=== PATIENT | female | born 1950 | race Caucasian/White ===

== ENCOUNTER 2017-12-28 19:36 | Emergency (ER) | payer MEDICARE, OTHER ==
--- NOTE | 2017-12-28 20:08 | ER Document Report ---
ED GI/ - General Chief Complaint: blood in stool Stated Complaint: GI BLEED Time Seen by Provider: 12/28/17 19:50 Mode of Arrival: Medic Information source: Patient Notes: Patient is a 67-year-old female who presents with chief complaint of rectal bleeding after disimpacting herself. Patient reports she has a long history of constipation as well as internal and external hemorrhoids. Patient reports that she tried taking some fiber today but felt unable to pass a bowel movement so she attempted to disimpact herself and began bleeding rectally. Patient reports similar episode a few years ago. Patient denies any other symptoms prior to today's event has felt well and has no other acute complaints today. Patient reports that she thinks she is still constipated. TRAVEL OUTSIDE OF THE [place] IN LAST 30 DAYS: No - Related Data Allergies/Adverse Reactions: No Known Allergies Allergy (Unverified 12/29/17 03:39) Past Medical History - General Information source: Patient - Social History Smoking Status: Former Smoker Frequency of alcohol use: None Drug Abuse: None Family History: Reviewed & Not Pertinent - Past Medical History Cardiac Medical History: Reports: Hx Hypertension GI Medical History: Reports: Other - Chronic constipation, internal and external hemorrhoids. Psychiatric Medical History: Reports: Hx Anxiety Review of Systems - Review of Systems Gastrointestinal: See HPI -: Yes All other systems reviewed and negative Physical Exam - Vital signs Vitals: Pulse Ox 97 12/28/17 20:05 - Notes Notes: PHYSICAL EXAMINATION: GENERAL: Well-appearing, well-nourished and in no acute distress. HEAD: Atraumatic, normocephalic. EYES: Pupils equal round and reactive to light, extraocular movements intact, conjunctiva are normal. ENT: Nares patent, oropharynx clear without exudates. Moist mucous membranes. NECK: Normal range of motion, supple without lymphadenopathy LUNGS: Breath sounds clear to auscultation bilaterally and equal. No wheezes rales or rhonchi. HEART: Regular rate and rhythm without murmurs ABDOMEN: Soft, nontender, nondistended abdomen. No guarding, no rebound. No masses appreciated. Female : No CVA tenderness Musculoskeletal: Normal range of motion, no pitting or edema. No cyanosis. NEUROLOGICAL: Cranial nerves grossly intact. Normal speech, normal gait. Normal sensory, motor exams PSYCH: Normal mood, normal affect. SKIN: Warm, Dry, normal turgor, no rashes or lesions noted. Course - Re-evaluation Re-evalutation: Patient's hemoglobin is 14.1, hematocrit 41.1. Patient's abdominal x-ray reveals constipation. Patient had a large bowel movement in the room prior to administration of the enema. There was a small amount of blood noted on the outside of the stool. Digital rectal exam reveals internal hemorrhoids. Bleeding likely came from a hemorrhoid after patient disimpacted herself earlier today. There is no gross active bleeding at this time. Patient is hypertensive with a systolic blood pressure in the 170s, patient reports that she has not taken her blood pressure medications in a month. Patient is without tachycardia. Patient given a dose of her home blood pressure medications and patient given prescription for same. Patient instructed to follow-up with primary care for continued follow-up on her hypertension. Patient will be discharged home in stable condition. - Vital Signs Vital signs: Temp Pulse Resp BP Pulse Ox 97.8 F 70 16 196/72 H 98 12/28/17 23:08 12/28/17 23:08 12/28/17 23:08 12/28/17 23:08 12/28/17 23:08 - Laboratory Result Diagrams: 12/28/17 20:20 Discharge - Discharge Clinical Impression: Bleeding hemorrhoid Condition: Stable Disposition: HOME, SELF-CARE Additional Instructions: Hemorrhoids You have hemorrhoids. These are formed by enlargement of veins around the anus. The cause is increased pressure in the veins, from or straining at bowel movements. Hemorrhoids often cause itching and bleeding with bowel movements. When a hemorrhoid becomes clotted, severe pain and swelling result. Soothing creams and suppositories are often prescribed. Warm sitz-baths may also decrease pain, swelling, and itching. Eat a high-fiber diet. Stool softeners such as Metamucil will help. Keep the area very clean. Medicated cleansing pads (such as Tucks) are useful after bowel movements. A hose-mounted shower unit (like a shower massager at low water pressure) can be used to clean around tender hemorrhoid tags. You should call the doctor or return if you develop fever, increasing pain , or an enlarging mass around the anus, or if you simply fail to improve with treatment. I would suggest using a stool softener such as Colace and use MiraLAX as needed for your constipation. I would not recommend attempting to digitally disimpact yourself as this appears to be causing trauma to the area. Please follow-up with your primary care provider as discussed, return to the emergency department if you develop any new or worsening symptoms. I am giving you a 30- day prescription for both of your blood pressure medications. These should both be on the $4 list at [facility]. Please follow-up with primary care to get back compliant with your blood pressure medications. Prescriptions: Lisinopril [Prinivil] 20 mg PO DAILY #30 tablet Metoprolol Tartrate 25 mg PO DAILY #30 tablet [facility] [Provider Group] - Follow up as needed
[2017-12-28 20:40] LABS: ABSOLUTE BASOPHILS # (AUTO) 0.1 10^3/uL (0.0-0.2); ABSOLUTE EOSINOPHILS # (AUTO) 0.1 10^3/uL (0.0-0.6); ABSOLUTE LYMPHOCYTES (AUTO) 2.1 10^3/uL (0.5-4.7); ABSOLUTE MONOCYTES (AUTO) 0.5 10^3/uL (0.1-1.4); ABSOLUTE NEUT (AUTO) 4.7 10^3/uL (1.7-8.2); BASOPHILS % (AUTO) 0.7 % (0-2); EOSINOPHILS % (AUTO) 1.9 % (0-6); HEMATOCRIT 41.1 % (36.0-47.0); HEMOGLOBIN 14.1 g/dL (12.0-15.5); LYMPHOCYTES % (AUTO) 27.9 % (13-45); MEAN CORPUSCULAR HEMOGLOBIN 29.2 pg (27.0-33.4); MEAN CORPUSCULAR HGB CONC 34.2 g/dL (32.0-36.0); MEAN CORPUSCULAR VOLUME 85 fl (80-97); MONOCYTES % (AUTO) 6.9 % (3-13); PLATELET COUNT 258 10^3/uL (150-450); RED BLOOD COUNT 4.82 10^6/uL (3.72-5.28); RED CELL DISTRIBUTION WIDTH 12.9 % (11.5-14.0); SEGMENTED NEUTROPHILS % (AUTO) 62.6 % (42-78); TOTAL CELLS COUNTED % (AUTO) 100 %; WHITE BLOOD COUNT 7.4 10^3/uL (4.0-10.5)
--- NOTE | 2017-12-28 20:53 | RADIOLOGY REPORT (SQ) ---
EXAM DESCRIPTION: KUB/ABDOMEN (SINGLE VIEW) COMPLETED DATE/TIME: 12/28/2017 8:46 pm REASON FOR STUDY: eval for constipation COMPARISON: None. NUMBER OF VIEWS: One view. TECHNIQUE: Supine radiographic image of the abdomen acquired. LIMITATIONS: None. FINDINGS: BOWEL GAS PATTERN: Nonobstructive pattern. A moderate amount of stool is present. CALCIFICATIONS: No suspicious calcifications. SOFT TISSUES: No gross mass or suggestion of organomegaly. HARDWARE: None in the abdomen. BONES: No acute fracture. No worrisome bone lesions. OTHER: No other significant finding. IMPRESSION: Constipation. Nonspecific abdomen. TECHNICAL DOCUMENTATION: JOB ID: [id number] [employer]- All Rights Reserved Reading location - IP/workstation name: [email or web address]
[2017-12-28] MEDS ORDERED: MINERAL OIL 30 ML UDCUP PR ONE (21:27)
[2017-12-28 23:10] VITALS: BP 196/72
[2017-12-28] MEDS ORDERED: LISINOPRIL 10 MG TABLET PO ONE (23:17)
[2017-12-28] MEDS ORDERED: METOPROLOL TARTRATE 25 MG TABLET PO ONE (23:17)
== END 2017-12-28 23:30 | disposition home or self-care (01) ==
LOC: ER 19:36
DX: K64.8 Other hemorrhoids (principal); R19.5 Other fecal abnormalities; Z87.891 Personal history of nicotine dependence; I10 Essential (primary) hypertension
CPT/HCPCS: 99284; 36415; 85025; 74018; A9270 ×2

== ENCOUNTER 2019-06-02 06:19 | Emergency (ER) | payer MEDICARE ==
[2019-06-02 07:26] LABS: APPEARANCE,URINE CLOUDY; BILIRUBIN,URINE NEGATIVE (NEGATIVE); COLOR,URINE RED; GLUCOSE, URINE NEGATIVE (NEGATIVE); KETONES,URINE NEGATIVE (NEGATIVE); LEUKOCYTE ESTERASE,URINE MODERATE (NEGATIVE); NITRITE,URINE NEGATIVE (NEGATIVE); PROTEIN,URINE 100 mg/dL (NEGATIVE); URINE SPECIFIC GRAVITY 1.009; UROBILINOGEN,URINE NEGATIVE mg/dL (<2.0)
--- NOTE | 2019-06-02 09:39 | ER Document Report ---
HPI - HPI Time Seen by Provider: 06/02/19 09:29 Pain Level: 4 Context: Patient is a 68-year-old female who presents emergency department with a chief complaint of dysuria and urinary urgency that started yesterday. She states that it is a "odd feeling" and she cannot describe her pain. Patient has a history of hypertension. Patient has not seen a primary care provider in regards to this issue. - ROS Systems Reviewed and Negative: Yes All other systems reviewed and negative - CONSTITUTIONAL Constitutional: DENIES: Fever, Chills - GASTROINTESTINAL Gastrointestinal: DENIES: Abdominal Pain, Nausea, Patient vomiting - URINARY Urinary: REPORTS: Dysuria, Urgency, Frequency - MUSCULOSKELETAL Musculoskeletal: DENIES: Extremity pain - DERM Skin Color: Normal Skin Problems: None Past Medical History - General Information source: Patient - Social History Smoking Status: Former Smoker Family History: Reviewed & Not Pertinent Patient has suicidal ideation: No Patient has homicidal ideation: No - Past Medical History Cardiac Medical History: Reports: Hx Hypercholesterolemia, Hx Hypertension Pulmonary Medical History: Reports: Hx Bronchitis Renal/ Medical History: Denies: Hx Peritoneal Dialysis Psychiatric Medical History: Reports: Hx Anxiety Past Surgical History: Reports: Hx Abdominal Surgery, Hx Hysterectomy, Hx Orthopedic Surgery - left knee Vertical Provider Document - CONSTITUTIONAL Agree With Documented VS: Yes Exam Limitations: No Limitations General Appearance: No Apparent Distress - INFECTION CONTROL TRAVEL OUTSIDE OF THE [place] IN LAST 30 DAYS: No - HEENT HEENT: Atraumatic, Normocephalic, PERRLA - NECK Neck: Normal Inspection - RESPIRATORY Respiratory: Breath Sounds Normal, No Respiratory Distress - CARDIOVASCULAR Cardiovascular: Regular Rate, Regular Rhythm Pulses: Normal: Radial - GI/ABDOMEN Gastrointestinal: Abdomen Soft, Abdomen Tender - very mildly tender mid lower abdomen - REPRODUCTIVE Female Genitalia: Normal Inspection - BACK Back: negative: CVA Tenderness-Right, CVA Tenderness-Left - MUSCULOSKELETAL/EXTREMETIES Musculoskeletal/Extremeties: FROM - NEURO Level of Consciousness: Awake, Alert, Appropriate Motor/Sensory: No Motor Deficit, No Sensory Deficit - DERM Integumentary: Warm, Dry, No Rash Course - Re-evaluation Re-evalutation: 06/02/19 09:38 Patient presents with symptoms consistent with an acute cystitis. Vitals wnl. No history of fever, flank pain, or constitution symptoms to suggest ascending infection at this time. Patient is well in appearance, tolerating oral intake without difficulty. No focal abdominal tenderness to suggest acute appendicitis, biliary pathology, acute pancreatitis, tubo-ovarian abscesses, or pelvic inflammatory disease. Patient will be started on antibiotics at this time. A culture has been sent. They will be discharged with return precautions and follow-up recommendations. - Vital Signs Vital signs: Temp Pulse Resp BP Pulse Ox 98 F 84 16 137/75 H 100 06/02/19 06:56 06/02/19 06:56 06/02/19 06:56 06/02/19 06:56 06/02/19 06:56 - Laboratory Laboratory results interpreted by me: 06/02/19 06:50 Urine Protein 100 H Urine Blood LARGE H Ur Leukocyte Esterase MODERATE H Discharge - Discharge Clinical Impression: Dysuria Urinary tract infection Qualifiers: Urinary tract infection type: acute cystitis Hematuria presence: with hematuria Qualified Code(s): N30.01 - Acute cystitis with hematuria Condition: Stable Disposition: HOME, SELF-CARE Instructions: Cephalexin ([facility]), Urinary Tract Infection ([facility]) Additional Instructions: Your urine shows findings consistent with a urinary tract infection. Please take all the antibiotics as directed even if your symptoms have improved. Please follow-up with your primary care physician as needed. Return to emergency room if you develop fever >101F, persistent vomiting, become lethargic, have severe pain in your sides, or any other symptoms that are concerning to you. Prescriptions: Cephalexin [Keflex] 500 mg PO BID #14 capsule Referrals: ROSENDO LAZARO MD [Primary Care Provider] - Follow up as needed
[2019-06-02 09:44] VITALS: BP 140/85
== END 2019-06-02 09:45 | disposition home or self-care (01) ==
LOC: ER 06:19
DX: N30.01 Acute cystitis with hematuria (principal); E78.00 Pure hypercholesterolemia, unspecified; I10 Essential (primary) hypertension; Z90.710 Acquired absence of both cervix and uterus
CPT/HCPCS: 81001; 87086; 87088; 87186; 99283

== ENCOUNTER 2020-03-28 11:30 | Emergency (ER) | payer MEDICARE ==
--- NOTE | 2020-03-28 12:27 | ER Document Report ---
ED General - General Stated Complaint: HURTS ALL OVER Time Seen by Provider: 03/28/20 12:18 Primary Care Provider: ROSENDO LAZARO MD [Primary Care Provider] - Follow up as needed Notes: Patient with chronic arthritis pain and hypertension presents with pain in her neck shoulders down both arms and both sides of her thoracic back. Worse this morning. "Is get any fits." Took Motrin and use a hot pack but no better. Also feels tingling in the right index finger. History of pinched nerves. Denies a history of chronic pain meds and says that her other medicines are being stolen by a family member she has poor transportation but she does have a primary care follow-up. Denies bowel or bladder incontinence or fever or rash. TRAVEL OUTSIDE OF THE [place] IN LAST 30 DAYS: No - Related Data Allergies/Adverse Reactions: meloxicam [From [employer]] Allergy (Verified 06/02/19 07:30) Past Medical History - General Information source: Patient - Social History Smoking Status: Unknown if Ever Smoked Family History: Reviewed & Not Pertinent - Past Medical History Cardiac Medical History: Reports: Hx Hypercholesterolemia, Hx Hypertension Pulmonary Medical History: Reports: Hx Bronchitis Renal/ Medical History: Denies: Hx Peritoneal Dialysis Psychiatric Medical History: Reports: Hx Anxiety Past Surgical History: Reports: Hx Abdominal Surgery, Hx Hysterectomy, Hx Orthopedic Surgery - left knee Review of Systems - Review of Systems Notes: REVIEW OF SYSTEMS GEN: Denies fever, chills, weight loss ENT: Denies sore throat, nasal discharge, ear pain EYES: Denies blurry vision, eye pain, discharge CV: Denies chest pain, palpitations, edema RESP: Denies cough, shortness of breath, wheezing GI: Denies abdominal pain, nausea, vomiting, diarrhea MSK: See HPI LYMPH: Denies swollen glands/lymph nodes NEURO: Denies headache, focal weakness or numbness, dizziness PSYCH: Denies depression, suicidal or homicidal ideation PHYSICAL EXAMINATION General: No acute distress, well-nourished Head: Atraumatic, normocephalic ENT: Mouth normal, oropharynx moist, no exudates or tonsillar enlargement Eyes: Conjunctiva normal, pupils equal, lids normal Neck: No JVD, supple, no guarding CVS: Normal rate, regular rhythm, no murmurs Resp: No resp distress, equal and normal breath sounds bilaterally GI: Nondistended, soft, no tenderness to palpation, no rebound or guarding Ext: No deformities, no edema, normal range of motion in upper and lower ext Back: No CVA or midline TTP Skin: No rash, warm Lymphatic: No lymphadeopathy noted Neuro: Awake, alert. Face symmetric. GCS 15. Mechanical Tech strength and sensation in both upper extremities Course - Re-evaluation Re-evalutation: 03/28/20 12:26 Cervical neuropathy versus muscle strain versus polymyalgia rheumatica No evidence of any acute process No sign of shingles cauda equina rhabdomyolysis etc. Gabapentin NSAID for short-term given her diabetes, chose naproxen which is the most friendly NSAID for diabetic, as well as some lidocaine patches. She will follow-up with her primary care. I have discussed with the patient there likely diagnosis, aftercare plan, follow-up plans and my usual and customary return precautions. They verbalized understanding of this. Discharge - Discharge Clinical Impression: Cervical radiculopathy Shoulder pain Qualifiers: Chronicity: acute Laterality: bilateral Qualified Code(s): M25.511 - Pain in right shoulder; M25.512 - Pain in left shoulder Condition: Good Disposition: HOME, SELF-CARE Instructions: Radiculopathy ([facility]) Additional Instructions: Is likely due to combination of arthritis and possible pinched nerve in her neck. I have started you on some medications but you definitely need to follow- up with your regular doctor for further testing. There is one condition called polymyalgia rheumatica that I think you need to be tested for in the office by your primary Prescriptions: Gabapentin 300 mg PO TID #30 capsule Lidocaine [Lidoderm 5% (700 mg) Transdermal Patch] 1 patch TP DAILY #10 adh..patch Naproxen Sodium 220 mg PO BID #10 tablet Referrals: ROSENDO LAZARO MD [Primary Care Provider] - Follow up as needed
[2020-03-28 12:44] VITALS: BP 179/114
== END 2020-03-28 12:42 | disposition home or self-care (01) ==
LOC: ER 11:30
DX: M54.12 Radiculopathy, cervical region (principal); I10 Essential (primary) hypertension; M19.90 Unspecified osteoarthritis, unspecified site; E11.9 Type 2 diabetes mellitus without complications; Z88.8 Allergy status to other drugs, medicaments and biological substances
CPT/HCPCS: 99283